=== PATIENT | female | born 1975 | race Caucasian/White ===

== ENCOUNTER 2024-02-12 22:15 | Inpatient (IN) | payer BC, MEDICAID ==
[~2024-02-12] VITALS: Ht 152.4 cm; Wt 71.0 kg
[2024-02-12 22:28] VITALS: O2SAT 100
[2024-02-12 23:13] LABS: BASOPHILS % 0.5 % (0.0-2.0); EOSINOPHILS % 1.5 % (0.0-5.0); HEMATOCRIT. 41.1 % (36.0-48.0); HEMOGLOBIN. 13.8 g/dL (12.0-16.0); LYMPHOCYTES % 22.3 % (20.0-50.0); MEAN CORPUSCULAR HEMOGLOBIN 30.3 pg (28.0-32.0); MEAN CORPUSCULAR HGB CONC 33.6 g/dL (31.0-37.0); MEAN CORPUSCULAR VOLUME 90.3 fL (81.0-99.0); MEAN PLATELET VOLUME 7.6 fl (7.4-10.4); MONOCYTES % 6.3 % (2.0-8.0); NEUTROPHILS % 69.4 % (40.0-76.0); PLATELET 320 x1000/uL (130-400); RED BLOOD CELL COUNT 4.55 mill/uL (4.2-5.4); WHITE BLOOD COUNT 12.9 x1000/uL (4.5-11.0)
[2024-02-12 23:19] LABS: CHLORIDE 106 mEq/L (98-107); POTASSIUM 4.2 mEq/L (3.5-5.1); SODIUM 137 mEq/L (136-145)
[2024-02-12 23:20] LABS: CARBON DIOXIDE 25 mEq/L (21-32)
[2024-02-12 23:21] LABS: CALCIUM 9.4 mg/dL (8.7-10.4)
[2024-02-12 23:25] LABS: CREATININE 0.7 mg/dL (0.6-1.0); GLUCOSE 129 mg/dL (70-105)
[2024-02-12 23:26] LABS: UREA NITROGEN BLOOD 8 mg/dL (9-23)
[2024-02-12 23:37] LABS: TROPONIN I HIGH SENSITIVITY < 4 ng/L (3.0-34)
[2024-02-12 23:51] LABS: CLARITY URINE TURBID (CLEAR); COLOR URINE YELLOW (YELLOW); GLUCOSE URINE NEGATIVE (NEGATIVE); KETONES URINE TRACE (NEGATIVE); LEUKOCYTE ESTERASE URINE 2+ (NEGATIVE); NITRITE URINE NEGATIVE (NEGATIVE); OCCULT BLOOD URINE 3+ (NEGATIVE); PROTEIN URINE 1+ (NEGATIVE); SPECIFIC GRAVITY URINE 1.023 (1.005-1.030)
[2024-02-13 00:02] LABS: ALANINE AMINOTRANSFERASE 30 IU/L (10-49); ALBUMIN 4.9 g/dL (3.2-4.8); ASPARTATE AMINOTRANSFERASE 28 IU/L (<34); BILIRUBIN DIRECT 0.1 mg/dL (<=3.0); BILIRUBIN TOTAL 0.4 mg/dL (0.1-1.0); PROTEIN TOTAL 7.8 g/dL (6.0-8.3)
[2024-02-13 00:35] LABS: HCG SCREEN NEGATIVE
[2024-02-13] MEDS: SODIUM CHLORIDE 0.9% 1,000 ML IV ONE (00:40)
[2024-02-13] MEDS: ONDANSETRON HCL 4MG/2ML INJ IV STA (00:40)
[2024-02-13] MEDS: MORPHINE SULFATE 4 MG/ML INJ (FOR IV/IM USE) IV STA (00:40)
[2024-02-13 00:53] LABS: BACTERIA URINE 2+; RBC URINE TNTC /hpf (0-2); SQUAMOUS EPITHELIAL CELL URINE 1+ /lpf (RARE/1+)
[2024-02-13] MEDS: CEFTRIAXONE 1GM/50ML 50 ML IV NR (02:15)
[2024-02-13] MEDS ORDERED: DOCUSATE SODIUM 100MG CAPSULE PO PRN (03:15)
[2024-02-13] MEDS ORDERED: IPRATROPIUM/ALBUTEROL 0.5-3(2.5)MG/3ML NEB HHN PRN (03:15)
[2024-02-13] MEDS ORDERED: GUAIFENESIN 200MG/10ML SUGAR FREE UDC PO PRN (03:15)
[2024-02-13] MEDS ORDERED: CLONIDINE 0.1MG TABLET PO PRN (03:15)
[2024-02-13] MEDS ORDERED: ACETAMINOPHEN 325MG TABLET PO PRN ×2 (03:15)
[2024-02-13] MEDS ORDERED: MAGNESIUM/ALUMINUM HYDROXIDE/SIMETHICONE 30ML UDC PO PRN (03:15)
[2024-02-13] MEDS ORDERED: ONDANSETRON HCL 4MG/2ML INJ IV PRN (03:15)
[2024-02-13] MEDS ORDERED: LORAZEPAM 0.5MG TABLET PO PRN (03:15)
[2024-02-13] MEDS: HYDROCODONE/ACETAMINOPHEN 7.5/325MG TABLET PO PRN ×2 (03:25→03:46)
[2024-02-13] MEDS ORDERED: HYDROCODONE/ACETAMINOPHEN 7.5/325MG TABLET PO PRN (03:30)
[2024-02-13] MEDS: VANCOMYCIN 1.5GM/250ML IV NR (03:45)
[2024-02-13] MEDS: DEXT 5%/0.9% NACL 1,000 ML IV SCH (03:50)
[2024-02-13 04:31] LABS: CHLORIDE 106 mEq/L (98-107); SODIUM 136 mEq/L (136-145)
[2024-02-13 04:32] LABS: CARBON DIOXIDE 22 mEq/L (21-32)
[2024-02-13 04:36] LABS: PHOSPHORUS 2.1 mg/dL (2.5-4.9)
[2024-02-13 04:37] LABS: CREATININE 0.6 mg/dL (0.6-1.0); GLUCOSE 182 mg/dL (70-105); UREA NITROGEN BLOOD 6 mg/dL (9-23)
[2024-02-13] MEDS: PIPERACILLIN/TAZO 3.375G/50ML 50 ML IV SCH (05:59)
[2024-02-13 06:44] LABS: INR 0.9; PROTHROMBIN TIME 10.5 sec (9.6-11.0)
[2024-02-13] MEDS ORDERED: NALOXONE HCL 0.4MG/ML VIAL IV PRN (09:00)
[2024-02-13] MEDS ORDERED: PANTOPRAZOLE 40MG DR TABLET PO SCH (09:00)
[2024-02-13] MEDS: LISINOPRIL 10MG TABLET PO SCH (10:08)
[2024-02-13] MEDS: PANTOPRAZOLE 40MG DR TABLET PO SCH (10:09)
[2024-02-13] MEDS ORDERED: CEFA500T MT (11:31)
[2024-02-13] MEDS ORDERED: PROT40 MT (11:31)
[2024-02-13] MEDS: HYDROCODONE/ACETAMINOPHEN 5/325MG TABLET PO PRN (11:37)
[2024-02-13 12:53] VITALS: BP 138/79; PULSE 98; RESP 18; TEMP 36.55848; O2SAT 100
[2024-02-13] MEDS ORDERED: VANCOMYCIN 750MG/150ML (BAXTER) IV SCH (15:00)
[2024-02-15] MEDS ORDERED: [UNRECOGNIZED DRUG - CODE] MT (16:38)
[2024-02-15] MEDS ORDERED: PROT40 PO (16:38)
== END 2024-02-13 12:42 | disposition home or self-care (01) | DRG 871 ==
LOC: ER 22:15 → 5WST 02-13 01:35 → EDBEDREQDT 02-13 01:47 → EDBEDREQSVC 02-13 01:47 → EDBEDREQ 02-13 01:47 → EDBEDREQTM 02-13 01:47 → 5WST 02-13 08:50 → 8WST 02-14 11:22 → 5WST 02-14 11:26 → 8WST 02-14 11:26 → UNDODISIN 02-14 14:23
PROVIDERS: ADMIT Internal Medicine; ATTEND Internal Medicine
DX: A41.9 Sepsis, unspecified organism (principal); K65.9 Peritonitis, unspecified; N39.0 Urinary tract infection, site not specified; E11.9 Type 2 diabetes mellitus without complications; K80.20 Calculus of gallbladder without cholecystitis without obstruction; I10 Essential (primary) hypertension; Z79.899 Other long term (current) drug therapy
CPT/HCPCS: 36415; 74176; 76705; 80048; 80076; 81003; 83036; 83605; 83735; 84100; 84484; 84703; 85025; 93005; 99285; J0696; J2270; J2405; J2543; J3370; J7030; J7042